=== PATIENT | female | born 1995 | race Caucasian/White ===

== ENCOUNTER 2016-12-13 14:08 | Emergency (ER) | payer OTHER ==
[~2016-12-13] VITALS: Ht 165.1 cm; Wt 57.0 kg
[2016-12-13 14:11] VITALS: BP 123/69
[2016-12-13] MEDS ORDERED: HydrOXYzine PAMOATE 50 MG CAPSULE PO ONE (15:00)
== END 2016-12-13 16:51 | disposition home or self-care (01) ==
LOC: EMS 14:10 → EEVIPCON 14:10 → EMS 16:51
DX: F41.0 Panic disorder [episodic paroxysmal anxiety] (principal); F32.9 Major depressive disorder, single episode, unspecified; F17.210 Nicotine dependence, cigarettes, uncomplicated
CPT/HCPCS: 99284